=== PATIENT | female | born 1990 | race Caucasian/White ===

== ENCOUNTER 2016-11-03 20:01 | Emergency (ER) | payer BC, OTHER ==
[2016-11-03 20:21] VITALS: BP 112/63; PULSE 77; TEMP 99; BMI 25.4
--- NOTE | 2016-11-03 23:23 | PDOC ---
History of Present Illness - General History Source: Patient Exam Limitations: No Limitations - History of Present Illness Initial Comments: 11/04/16 00:09 The patient is a 26 year old female, with no significant past medical history, who presents to the emergency department complaining of abdominal pain for approximately 2 weeks. The patient reports the pain is localized in the right upper quadrant. She reports her pain is exacerbated after eating and during sexual intercourse. Patient reports she also feels a knot in her throat after eating. She reports intermittent nausea, but denies any vomiting, diarrhea, or constipation. She denies any flank pain, dysuria, hematuria, frequency, or urgency. She denies any fever or chills. Patient reports her last menstrual period was 10/06/16. Allergies: NKDA Past Surgical History: None reported. Social History: Non smoker. No ETOH or drug use <Raul Burks - Last Filed: 11/04/16 00:09> <Raleigh Waggoner - Last Filed: 11/04/16 01:46> - General Chief Complaint: Pain Stated Complaint: ABD PAIN Time Seen by Provider: 11/03/16 22:51 Past History <Raul Burks - Last Filed: 11/04/16 00:09> - Past Medical History Other medical history: Pt denies - Psycho/Social/Smoking Cessation Hx Suicidal Ideation: No Smoking History: Never smoked Have you smoked in the past 12 months: No Information on smoking cessation initiated: No Hx Alcohol Use: No Drug/Substance Use Hx: No Substance Use Type: None <Raleigh Waggoner - Last Filed: 11/04/16 01:46> - Past Medical History Allergies/Adverse Reactions: Allergies Allergy/AdvReac Type Severity Reaction Status Date / Time No Known Allergies Allergy Verified 11/03/16 20:17 Home Medications: Ambulatory Orders Pantoprazole Sodium [Protonix -] 40 mg PO DAILY #14 tablet.ec 11/04/16 Review of Systems - Review of Systems Able to Perform ROS?: Yes Comments:: 11/04/16 00:09 CONSTITUTIONAL: No fever, no chills, no fatigue EYES: No visual changes ENT: No ear pain, no sore throat CARDIOVASCULAR: No chest pain, no palpitations RESPIRATORY: No cough, no SOB GI: Yes: +right upper quadrant abdominal pain, +nausea. No vomiting, no constipation, no diarrhea GENITOURINARY: No dysuria, no frequency, no hematuria MUSKULOSKELETAL: No backpain, no joint pain, no myalgias SKIN: No rash NEURO: No headache <Raul Burks - Last Filed: 11/04/16 00:09> *Physical Exam - Vital Signs Last Vital Signs Temp Pulse Resp BP Pulse Ox 99.0 F 77 20 112/63 100 11/03/16 20:17 11/03/16 20:17 11/03/16 20:17 11/03/16 20:17 11/03/16 20:17 - Physical Exam Comments: 11/04/16 00:09 CONSTITUTIONAL: Well-appearing; well-nourished; in no apparent distress HEAD: Normocephalic; atraumatic EYES: PERRL; EOM intact. No scleral icterus ENMT: External appears normal; normal oropharynx NECK: Supple; non-tender; no cervical lymphadenopathy CARD: Normal S1, S2; no murmurs, rubs, or gallops RESP: Normal chest excursion with respiration; breath sounds clear and equal bilaterally; no wheezes, rhonchi, or rales ABD: Soft, non-distended; non-tender; no palpable organomegaly, no palpable hernias EXT: Normal ROM in all four extremities; non-tender to palpation; distal pulses intact SKIN: Warm, dry, no rash NEURO: No focal neurological deficiencies. <VitaliyTemitopericcojerardo - Last Filed: 11/04/16 00:09> - Vital Signs Last Vital Signs Temp Pulse Resp BP Pulse Ox 99.0 F 77 20 112/63 100 11/03/16 20:17 11/03/16 20:17 11/03/16 20:17 11/03/16 20:17 11/03/16 20:17 <Raleigh Waggoner - Last Filed: 11/04/16 01:46> ED Treatment Course - LABORATORY CBC & Chemistry Diagram: 11/03/16 23:40 11/03/16 23:40 - ADDITIONAL ORDERS Additional order review: Laboratory Results 11/03/16 23:15 Urine Color Ltyellow Urine Appearance Clear Urine pH 7.0 Urine Protein Negative Urine Glucose (UA) Negative Urine Ketones Negative Urine Blood Negative Urine Nitrite Negative Urine Bilirubin Negative Urine Urobilinogen Negative Ur Leukocyte Esterase Negative Urine HCG, Qual Negative 11/03/16 23:40 RBC 4.20 MCV 93.8 MCHC 33.8 RDW 12.8 MPV 8.1 Neutrophils % 50.0 Lymphocytes % 39.9 Monocytes % 7.9 Eosinophils % 1.5 Basophils % 0.7 <Raul Burks - Last Filed: 11/04/16 00:09> - LABORATORY CBC & Chemistry Diagram: 11/03/16 23:40 11/03/16 23:40 <Raleigh Waggoner - Last Filed: 11/04/16 01:46> Medical Decision Making - Medical Decision Making 11/04/16 01:44 Patient is a well-appearing 26-year-old female who presents to the ER with atraumatic right upper quadrant and epigastric pain that has worsened postprandially for the past 2 weeks. In the ER, patient is awake and alert, afebrile and hemodynamically stable. Physical exam reveals no scleral icterus, moist mucous membranes; no evidence of abdominal tenderness to palpation, there is no guarding or rebound on serial exams; there is no evidence of CVA tenderness bilaterally. Differential diagnoses includes cholelithiasis versus gastritis versus shows peptic ulcer disease versus esophagitis. CBC/CMP/UA within normal limit. Lipase is within normal limit as well. Right upper quadrant ultrasound shows no evidence of gallbladder disease or hydronephrosis. Patient remains asymptomatic at this time will be discharged with Protonix with GI follow-up. <Raleigh Waggoner - Last Filed: 11/04/16 01:46> *DC/Admit/Observation/Transfer - Attestations Scribe Attestion: 11/04/16 00:10 Documentation prepared by Raul Burks, acting as medical administrator for Raleigh Waggoner MD. <Raul Burks - Last Filed: 11/04/16 00:09> - Attestations Physician Attestion: 11/04/16 01:43 The documentation was prepared by the scribe under my direct supervision. I have reviewed the documentation which correctly represents the findings, medical decision-making and critical action taken by me. <Raleigh Waggoner - Last Filed: 11/04/16 01:46> Diagnosis at time of Disposition: Nausea Abdominal pain Qualifiers: Abdominal location: epigastric Qualified Code(s): R10.13 - Epigastric pain - Discharge Dispostion Disposition: HOME Condition at time of disposition: Stable - Referrals Referrals: Gurmeet Wing MD [Staff Physician] - - Patient Instructions Printed Discharge Instructions: DI for Abdominal Pain-Adult
[2016-11-03 23:30] LABS: URINE APPEARANCE CLEAR; URINE BILIRUBIN NEGATIVE (NEGATIVE); URINE BLOOD NEGATIVE (NEGATIVE); URINE COLOR LTYELLOW; URINE GLUCOSE (UA) NEGATIVE (NEGATIVE); URINE KETONE NEGATIVE (NEGATIVE); URINE LEUK ESTERASE NEGATIVE (NEGATIVE); URINE NITRITE NEGATIVE (NEGATIVE); URINE PROTEIN NEGATIVE (NEGATIVE); URINE UROBILINOGEN NEGATIVE mg/dL (0.2-1.0)
[2016-11-03 23:50] LABS: BASOPHIL 0.7 % (0-2.0); EOSINOPHIL 1.5 % (0-4.5); MCH 31.7 pg (25.7-33.7); MCHC 33.8 g/dl (32.0-36.0); MEAN CELL VOLUME 93.8 fl (80-96); MEAN PLT VOLUME 8.1 fl (7.5-11.1); PLATELET COUNT 216 K/MM3 (134-434); RDW 12.8 % (11.6-15.6); WHITE BLOOD COUNT 7.6 K/mm3 (4.0-10.0)
[2016-11-04 00:26] LABS: ALK PHOS 91 U/L (45-117); ANION GAP 9 (8-16); BILIRUBIN,TOTAL 0.3 mg/dL (0.2-1.0); CALCIUM 8.8 mg/dL (8.5-10.1); CO2 27 mmol/L (21-32); CREATININE 0.5 mg/dL (0.55-1.02); GLUCOSE,RANDOM 96 mg/dL (74-106); SGOT/AST 18 U/L (15-37); SGPT/ALT 23 U/L (12-78); TOT PROT 7.1 g/dl (6.4-8.2)
== END 2016-11-04 02:05 | disposition home or self-care (01) ==
LOC: JER 20:01
DX: R10.13 Epigastric pain (principal)
CPT/HCPCS: 36415; 76705-TC; 80053; 81003; 83690; 84703; 85025; 87086; 99282-25